=== PATIENT | male | born 1990 | race American Indian/Alaskan Native ===

== ENCOUNTER 2018-07-09 20:43 | Emergency (ER) | payer SELFPAY ==
[2018-07-09] MEDS ORDERED: LIDOCAINE VISCOUS 2% MM NR (22:00)
--- NOTE | 2018-07-09 22:01 | Emergency Department Report ---
ED General Adult HPI - General Chief complaint: Rectal Pain Stated complaint: ANAL PAIN Time Seen by Provider: 07/09/18 21:47 Source: patient Mode of arrival: Wheelchair Limitations: No Limitations - History of Present Illness Initial comments: Patient 28-year-old [place] male who presents for hemorrhoids states itching and burning for past week there is no rectal bleeding no abdominal pain no nausea vomiting no fever chills patient has history of same usually treated with Preparation H placed Preparation H is not working this time Onset/Timin -: week(s) Radiation: other (rectum) Severity scale (0 -10): 4 Quality: burning, other (itching ) Consistency: intermittent Improves with: none Worsens with: movement Associated Symptoms: denies: fever/chills, malaise, nausea/vomiting, rash Treatments Prior to Arrival: none (prep H ) - Related Data Previous Rx's Medication Instructions Recorded Last Taken Type Hydrocortisone/Pramoxine 10 gm RC BID PRN #1 foam 07/09/18 Unknown Rx [Proctofoam-Hc Foam] Lidocaine 2% Uroject [Xylocaine 2% 1 applicatio MM BID PRN #1 vial 07/09/18 Unknown Rx Urojet] Allergies Allergy/AdvReac Type Severity Reaction Status Date / Time No Known Allergies Allergy Unverified 07/09/18 20:59 ED Review of Systems ROS: Stated complaint: ANAL PAIN Other details as noted in HPI Constitutional: denies: chills, fever Eyes: denies: eye pain, eye discharge, vision change ENT: denies: ear pain, throat pain Respiratory: denies: cough, shortness of breath, wheezing Cardiovascular: denies: chest pain, palpitations Endocrine: no symptoms reported Gastrointestinal: other (homerrhoids). denies: abdominal pain, nausea, vomiting , diarrhea, constipation, hematemesis, melena, hematochezia Genitourinary: denies: urgency, dysuria Musculoskeletal: denies: back pain, joint swelling, arthralgia Skin: denies: rash, lesions Neurological: denies: headache, weakness, paresthesias Psychiatric: denies: anxiety, depression Hematological/Lymphatic: denies: easy bleeding, easy bruising ED Past Medical Hx - Past Medical History Previous Medical History?: No - Surgical History Past Surgical History?: No - Social History Smoking Status: Never Smoker Substance Use Type: Marijuana - Medications Home Medications: Home Medications Medication Instructions Recorded Confirmed Last Taken Type Hydrocortisone/Pramoxine 10 gm RC BID PRN #1 foam 07/09/18 Unknown Rx [Proctofoam-Hc Foam] Lidocaine 2% Uroject [Xylocaine 2% 1 applicatio MM BID PRN #1 vial 07/09/18 Unknown Rx Urojet] ED Physical Exam - General Limitations: No Limitations General appearance: alert, in no apparent distress - Head Head exam: Present: atraumatic (review), normocephalic - Eye Eye exam: Present: normal appearance - ENT ENT exam: Present: mucous membranes moist - Neck Neck exam: Present: normal inspection - Respiratory Respiratory exam: Present: normal lung sounds bilaterally. Absent: respiratory distress - Cardiovascular Cardiovascular Exam: Present: regular rate, normal rhythm. Absent: systolic murmur, diastolic murmur, rubs, gallop - GI/Abdominal GI/Abdominal exam: Present: soft, normal bowel sounds - Rectal Rectal exam: Present: hemorrhoids - Extremities Exam Extremities exam: Present: normal inspection - Back Exam Back exam: Present: normal inspection, full ROM. Absent: CVA tenderness (L), muscle spasm, paraspinal tenderness, vertebral tenderness, rash noted - Neurological Exam Neurological exam: Present: alert, oriented X3, CN II-XII intact, normal gait, reflexes normal - Psychiatric Psychiatric exam: Present: normal affect, normal mood - Skin Skin exam: Present: warm, dry, intact, normal color. Absent: rash ED Course Vital Signs 07/09/18 20:56 Temperature 98.1 F Pulse Rate 79 Respiratory 18 Rate Blood Pressure 119/89 O2 Sat by Pulse 100 Oximetry ED Medical Decision Making - Medical Decision Making There is no rectal bleeding these are external hemorrhoids at 9:00 nonthrombosed rectal area noted cc patient counseled on hygiene since last use lidocaine jelly for pain Proctofoam twice a day follow with PCP in 2-3 days patient verbalized understanding and agreement with same patient DC'd home in stable condition at this time Critical care attestation.: If time is entered above; I have spent that time in minutes in the direct care of this critically ill patient, excluding procedure time. ED Disposition Clinical Impression: Hemorrhoids, external Disposition: DC-01 TO HOME OR SELFCARE Is pt being admited?: No Does the pt Need Aspirin: No Condition: Good Instructions: Hemorrhoids (ED) Prescriptions: Hydrocortisone/Pramoxine [Proctofoam-Hc Foam] 10 gm RC BID PRN #1 foam PRN Reason: Hemorrhoids Lidocaine 2% Uroject [Xylocaine 2% Urojet] 1 applicatio MM BID PRN #1 vial PRN Reason: rectal pain itching Referrals: CL BALLESTEROS DO [Staff Physician] - 3-5 Days Forms: Work/School Release Form(ED) Time of Disposition: 22:06
[2018-07-09 22:14] VITALS: BP 122/72
== END 2018-07-09 22:12 | disposition home or self-care (01) ==
LOC: ED 20:43
DX: K64.4 Residual hemorrhoidal skin tags (principal); F12.10 Cannabis abuse, uncomplicated
CPT/HCPCS: 99282

== ENCOUNTER 2018-08-31 14:12 | Emergency (ER) | payer SELFPAY ==
[2018-08-31 14:24] VITALS: BP 138/94
== END 2018-08-31 16:30 ==
LOC: ED 14:12
DX: R07.0 Pain in throat (principal); Z53.21 Procedure and treatment not carried out due to patient leaving prior to being seen by health care provider

== ENCOUNTER 2018-08-31 21:22 | Emergency (ER) | payer SELFPAY ==
[2018-09-01] MEDS ORDERED: MOTRIN PO ONE (02:33)
[2018-09-01] MEDS ORDERED: LIDOCAINE VISCOUS 2% PO ONE (02:33)
--- NOTE | 2018-09-01 02:34 | Emergency Department Report ---
ED ENT HPI - General Chief complaint: Sore Throat Stated complaint: MOUTH PAIN Time Seen by Provider: 09/01/18 01:19 Source: patient Mode of arrival: Ambulatory Limitations: No Limitations - History of Present Illness Initial comments: This is a 28-year-old male nontoxic, well nourished in appearance, no acute signs of distress presents to the ED with c/o of sore throat. Patient describes sore throat as swallowing razer blades. Patient denies any fever, chills, headache, stiff neck, nausea, vomiting, chest pain, shortness of breath, numbness or tingling. Patient denies any drooling or hoarseness. Patient denies any allergies or significant past medical history. MD complaint: sore throat -: days(s) (2) Location: throat Severity: mild Severity scale (0 -10): 8 Consistency: constant Improves with: none Worsens with: swallowing Associated Symptoms: pain with swallowing, sore throat. denies: fever, cough, gum swelling, toothache, tinnitus, hearing loss, discharge from ear, rhinorrhea - Related Data Previous Rx's Medication Instructions Recorded Last Taken Type Hydrocortisone/Pramoxine 10 gm RC BID PRN #1 foam 07/09/18 Unknown Rx [Proctofoam-Hc Foam] Lidocaine 2% Uroject [Xylocaine 2% 1 applicatio MM BID PRN #1 vial 07/09/18 Unknown Rx Urojet] Amoxicillin [Amoxicillin TAB] 875 mg PO BID #20 tablet 09/01/18 Unknown Rx Ibuprofen [Motrin] 600 mg PO Q8H PRN #20 tablet 09/01/18 Unknown Rx Nystas/Diphen/Xyl Visc/Mylanta 15 ml MM Q6H PRN 5 Days ml 09/01/18 Unknown Rx [Magic Mouthwash] Allergies Allergy/AdvReac Type Severity Reaction Status Date / Time No Known Allergies Allergy Verified 08/31/18 14:22 ED Dental HPI - General Chief complaint: Sore Throat Stated complaint: MOUTH PAIN Time Seen by Provider: 09/01/18 01:19 Source: patient Mode of arrival: Ambulatory Limitations: No Limitations - Related Data Previous Rx's Medication Instructions Recorded Last Taken Type Hydrocortisone/Pramoxine 10 gm RC BID PRN #1 foam 07/09/18 Unknown Rx [Proctofoam-Hc Foam] Lidocaine 2% Uroject [Xylocaine 2% 1 applicatio MM BID PRN #1 vial 07/09/18 Unknown Rx Urojet] Amoxicillin [Amoxicillin TAB] 875 mg PO BID #20 tablet 09/01/18 Unknown Rx Ibuprofen [Motrin] 600 mg PO Q8H PRN #20 tablet 09/01/18 Unknown Rx Nystas/Diphen/Xyl Visc/Mylanta 15 ml MM Q6H PRN 5 Days ml 09/01/18 Unknown Rx [Magic Mouthwash] Allergies Allergy/AdvReac Type Severity Reaction Status Date / Time No Known Allergies Allergy Verified 08/31/18 14:22 ED Review of Systems ROS: Stated complaint: MOUTH PAIN Other details as noted in HPI Constitutional: denies: chills, fever Eyes: denies: eye pain, eye discharge, vision change ENT: throat pain. denies: ear pain Respiratory: denies: cough, shortness of breath, wheezing Cardiovascular: denies: chest pain, palpitations Endocrine: no symptoms reported Gastrointestinal: denies: abdominal pain, nausea, diarrhea Genitourinary: denies: urgency, dysuria Musculoskeletal: denies: back pain, joint swelling, arthralgia Skin: denies: rash, lesions Neurological: denies: headache, weakness, paresthesias Psychiatric: denies: anxiety, depression Hematological/Lymphatic: denies: easy bleeding, easy bruising ED Past Medical Hx - Past Medical History Previous Medical History?: No - Surgical History Past Surgical History?: No - Social History Smoking Status: Never Smoker Substance Use Type: Alcohol, Marijuana - Medications Home Medications: Home Medications Medication Instructions Recorded Confirmed Last Taken Type Hydrocortisone/Pramoxine 10 gm RC BID PRN #1 foam 07/09/18 Unknown Rx [Proctofoam-Hc Foam] Lidocaine 2% Uroject [Xylocaine 2% 1 applicatio MM BID PRN #1 vial 07/09/18 Unknown Rx Urojet] Amoxicillin [Amoxicillin TAB] 875 mg PO BID #20 tablet 09/01/18 Unknown Rx Ibuprofen [Motrin] 600 mg PO Q8H PRN #20 tablet 09/01/18 Unknown Rx Nystas/Diphen/Xyl Visc/Mylanta 15 ml MM Q6H PRN 5 Days ml 09/01/18 Unknown Rx [Magic Mouthwash] ED Physical Exam - General Limitations: No Limitations General appearance: alert, in no apparent distress - Head Head exam: Present: atraumatic, normocephalic - Eye Eye exam: Present: normal appearance Pupils: Present: normal accommodation - ENT ENT exam: Present: mucous membranes moist, TM's normal bilaterally - Expanded ENT Exam Expanded Ear exam: Present: normal external inspection Mouth exam: Present: normal external inspection, tongue normal. Absent: drooling, trismus, muffled voice Teeth exam: Present: normal inspection Throat exam: Positive: tonsillar erythema, other (Uvula midline.). Negative: tonsillomegaly, tonsillar exudate, R peritonsillar mass, L peritonsillar mass - Neck Neck exam: Present: normal inspection, full ROM. Absent: tenderness, meningismus, lymphadenopathy - Respiratory Respiratory exam: Present: normal lung sounds bilaterally. Absent: respiratory distress - Cardiovascular Cardiovascular Exam: Present: regular rate, normal rhythm. Absent: systolic murmur, diastolic murmur, rubs, gallop - GI/Abdominal GI/Abdominal exam: Present: soft, normal bowel sounds - Rectal Rectal exam: Present: deferred - Extremities Exam Extremities exam: Present: normal inspection - Back Exam Back exam: Present: normal inspection - Neurological Exam Neurological exam: Present: alert, oriented X3 - Psychiatric Psychiatric exam: Present: normal affect, normal mood - Skin Skin exam: Present: warm, dry, intact, normal color. Absent: rash ED Course Vital Signs 08/31/18 21:46 Temperature 99.0 F Pulse Rate 74 Respiratory 18 Rate Blood Pressure 127/81 O2 Sat by Pulse 97 Oximetry - Reevaluation(s) Reevaluation #1: 09/01/18 02:35 Patient is speaking in full sentences with no signs of distress noted. Critical care attestation.: If time is entered above; I have spent that time in minutes in the direct care of this critically ill patient, excluding procedure time. ED Disposition Clinical Impression: Pharyngitis Qualifiers: Pharyngitis/tonsillitis etiology: unspecified etiology Qualified Code(s): J02.9 - Acute pharyngitis, unspecified Disposition: - TO HOME OR SELFCARE Is pt being admited?: No Does the pt Need Aspirin: No Condition: Stable Instructions: Pharyngitis (ED) Additional Instructions: Follow-up with a primary care doctor in 3-5 days or if symptoms worsen and continue return to emergency room as soon as possible. Prescriptions: Amoxicillin [Amoxicillin TAB] 875 mg PO BID #20 tablet Ibuprofen [Motrin] 600 mg PO Q8H PRN #20 tablet PRN Reason: Pain Nystas/Diphen/Xyl Visc/Mylanta [Magic Mouthwash] 15 ml MM Q6H PRN 5 Days ml PRN Reason: Sore Throat Referrals: PRIMARY CARE, [Primary Care Provider] - 3-5 Days AMARI HAIRSTON MD [Staff Physician] - 3-5 Days [facility] [Outside] - 3-5 Days [facility] [Outside] - 3-5 Days Forms: Work/School Release Form(ED)
[2018-09-01 03:22] VITALS: BP 122/77
== END 2018-09-01 03:22 | disposition home or self-care (01) ==
LOC: ED 21:22
DX: J02.9 Acute pharyngitis, unspecified (principal); F12.10 Cannabis abuse, uncomplicated
CPT/HCPCS: 99282